=== PATIENT | female | born 1945 ===

== ENCOUNTER 2019-12-18 08:23 | Inpatient (IN) ==
[2019-12-18] MEDS ORDERED: Naloxone 0.4 MG/ML INJ IVP PRN (10:46)
[2019-12-18 10:49] LABS: Basophils % 0.2 %; Eosinophils % 0.1 %; Hematocrit 36.4 % (35.3-44.9); Hemoglobin 11.3 g/dL (11.5-15.4); Immature Granulocytes % 1.3 % (0-4); Lymphocytes # 1.2 K/mcL (0.6-4.6); Lymphocytes % 7.6 %; Mean Corpuscular Hemoglobin 27.6 pg (28.0-33.3); Mean Corpuscular Volume 88.8 fL (83.0-100.0); Mean Platelet Volume 9.5 fL (9.4-12.4); Monocytes # 0.6 K/mcL (0.0-1.3); Monocytes % 3.5 %; Neutrophils # 13.7 K/mcL (1.6-8.9); Nucleated Red Blood Cells 0.1 /100 WBC (0); Platelet Count 310 K/mcL (140-400); Red Cell Distribution Width 15.8 % (11.5-14.5); Segmented Neutrophils % 87.3 %; White Blood Count 15.7 K/mcL (4.3-11.1)
[2019-12-18 10:53] LABS: INR 1.7; Prothrombin Time 19.1 Seconds (9.4-12.1)
[2019-12-18 10:56] LABS: Activated Partial Thrombo Time 37.3 Seconds (26.0-36.0)
[2019-12-18 11:11] LABS: Alanine Aminotransferase 22 Units/L (7-52); Albumin 3.1 g/dL (3.5-5.7); Albumin/Globulin Ratio 0.7 (1.1-2.2); Alkaline Phosphatase 108 Units/L (34-104); Aspartate Amino Transferase 36 Units/L (13-39); BUN/Creatinine Ratio 29 (6-26); Bilirubin,Total 1.1 mg/dL (0.3-1.0); Blood Urea Nitrogen 17 mg/dL (8-23); Calcium 9.4 mg/dL (8.6-10.3); Carbon Dioxide 25 mEq/L (23-29); Chloride 99 mEq/L (98-107); Globulin 4.5 g/dL (2.4-3.5); Glucose 114 mg/dL (70-105); Osmolality,Calculated 288 (280-300); Potassium 3.3 mEq/L (3.5-5.1); Sodium 138 mEq/L (136-145); Total Protein 7.6 g/dL (6.4-8.9); eGFR For African Americans > 60 (> 60); eGFR For Non-African Americans > 60 (> 60)
[2019-12-18] MEDS ORDERED: Ondansetron 4 MG/2 ML VIAL IVP PRN (11:16)
[2019-12-18] MEDS ORDERED: Vancomycin 1,250 MG/262.5 ML IV.SOLN IVPB ONE (13:00)
[2019-12-18 13:35] LABS: C-Reactive Protein 289 mg/L (Less than 10)
[2019-12-18] MEDS: Piperacillin/Tazobactam 3.375 GM in 0.9 % Sodium Chloride Mini Bag 100 ML IVPB SCH (17:28)
[2019-12-18] MEDS: *HR* OxyCODONE Immed Rel 5 MG TABLET PO PRN (20:11)
[2019-12-18] MEDS: Pregabalin 75 MG CAPSULE PO SCH (20:11)
[2019-12-18] MEDS: *HR* LORazepam 0.5 MG TABLET PO SCH (21:56)
[2019-12-19] MEDS: Piperacillin/Tazobactam 3.375 GM in 0.9 % Sodium Chloride Mini Bag 100 ML IVPB SCH ×2 (00:55→07:58)
[2019-12-19 02:10] LABS: Basophils % 0.1 %; Eosinophils % 0.1 %; Hematocrit 34.4 % (35.3-44.9); Hemoglobin 10.8 g/dL (11.5-15.4); Immature Granulocytes % 1.5 % (0-4); Lymphocytes # 1.3 K/mcL (0.6-4.6); Lymphocytes % 10.6 %; Mean Corpuscular HGB Conc 31.4 g/dL (31.6-35.5); Mean Corpuscular Hemoglobin 27.6 pg (28.0-33.3); Mean Corpuscular Volume 87.8 fL (83.0-100.0); Mean Platelet Volume 9.9 fL (9.4-12.4); Monocytes # 0.6 K/mcL (0.0-1.3); Monocytes % 5.1 %; Neutrophils # 10.2 K/mcL (1.6-8.9); Nucleated Red Blood Cells 0.3 /100 WBC (0); Platelet Count 304 K/mcL (140-400); Red Blood Count 3.92 M/mcL (3.82-4.97); Red Cell Distribution Width 15.8 % (11.5-14.5); Segmented Neutrophils % 82.6 %; White Blood Count 12.3 K/mcL (4.3-11.1)
[2019-12-19] MEDS ORDERED: *HR* OxyCODONE Immed Rel 5 MG TABLET PO ONE (02:19)
[2019-12-19 02:28] LABS: BUN/Creatinine Ratio 31 (6-26); Blood Urea Nitrogen 15 mg/dL (8-23); Calcium 8.8 mg/dL (8.6-10.3); Carbon Dioxide 25 mEq/L (23-29); Chloride 102 mEq/L (98-107); Glucose 99 mg/dL (70-105); Osmolality,Calculated 291 (280-300); Potassium 3.4 mEq/L (3.5-5.1); Sodium 140 mEq/L (136-145); eGFR For African Americans > 60 (> 60); eGFR For Non-African Americans > 60 (> 60)
[2019-12-19] MEDS ORDERED: Vancomycin 1,250 MG/262.5 ML IV.SOLN IVPB SCH (03:00)
[2019-12-19 05:03] LABS: Magnesium 1.4 mg/dL (1.6-2.6)
[2019-12-19] MEDS ORDERED: Bacitracin 50,000 UNIT, Polymyxin B Sulfate 500,000 UNIT, Sodium Chloride IRRigation 1,... IR ONE (06:00)
[2019-12-19] MEDS: Pregabalin 75 MG CAPSULE PO SCH ×2 (07:57→21:09)
[2019-12-19] MEDS: Famotidine 20 MG TABLET PO SCH ×2 (08:01→21:09)
[2019-12-19] MEDS ORDERED: Furosemide 20 MG TABLET PO SCH (09:00)
[2019-12-19] MEDS ORDERED: amLODIPine 5 MG TABLET PO SCH (09:00)
[2019-12-19] MEDS ORDERED: *HR* LORazepam 0.5 MG TABLET PO SCH (09:00)
[2019-12-19] MEDS ORDERED: Lidocaine -MPF 2% 2 ML VIAL ONE (09:01)
[2019-12-19] MEDS ORDERED: *HR* FentaNYL (PF) 100 MCG/2 ML VIAL ONE ×2 (09:01→10:31)
[2019-12-19] MEDS ORDERED: Ondansetron 4 MG/2 ML VIAL ONE (09:01)
[2019-12-19] MEDS ORDERED: Dexamethasone 4 MG/ML VIAL ONE (09:01)
[2019-12-19] MEDS ORDERED: *HR* Propofol 200 MG/20 ML VIAL IVP ONE (09:02)
[2019-12-19] MEDS ORDERED: Vancomycin 1,000 MG VIAL ONE (09:30)
[2019-12-19] MEDS ORDERED: Acetaminophen IV 1,000 MG/100 ML BAG ONE (09:41)
[2019-12-19] MEDS: *HR* OxyCODONE Immed Rel 5 MG TABLET PO PRN ×2 (13:07→23:18)
[2019-12-19] MEDS: *HR* LORazepam 0.5 MG TABLET PO SCH (21:09)
[2019-12-20] MEDS ORDERED: Vancomycin 1,250 MG/262.5 ML IV.SOLN IVPB SCH (03:00)
[2019-12-20] MEDS: *HR* OxyCODONE Immed Rel 5 MG TABLET PO PRN ×3 (05:46→20:48)
[2019-12-20] MEDS ORDERED: Bacitracin 50,000 UNIT, Polymyxin B Sulfate 500,000 UNIT, Sodium Chloride IRRigation 1,... IR ONE (06:00)
[2019-12-20 06:39] LABS: Basophils % 0.2 %; Hematocrit 34.3 % (35.3-44.9); Hemoglobin 10.5 g/dL (11.5-15.4); Immature Granulocytes % 1.7 % (0-4); Lymphocytes # 0.9 K/mcL (0.6-4.6); Lymphocytes % 6.4 %; Mean Corpuscular HGB Conc 30.6 g/dL (31.6-35.5); Mean Corpuscular Hemoglobin 26.9 pg (28.0-33.3); Mean Corpuscular Volume 87.7 fL (83.0-100.0); Mean Platelet Volume 9.6 fL (9.4-12.4); Monocytes # 0.4 K/mcL (0.0-1.3); Neutrophils # 12.8 K/mcL (1.6-8.9); Nucleated Red Blood Cells 0.1 /100 WBC (0); Platelet Count 322 K/mcL (140-400); Red Blood Count 3.91 M/mcL (3.82-4.97); Red Cell Distribution Width 15.7 % (11.5-14.5); Segmented Neutrophils % 88.7 %; White Blood Count 14.5 K/mcL (4.3-11.1)
[2019-12-20 07:04] LABS: BUN/Creatinine Ratio 28 (6-26); Blood Urea Nitrogen 13 mg/dL (8-23); Calcium 8.9 mg/dL (8.6-10.3); Carbon Dioxide 27 mEq/L (23-29); Chloride 101 mEq/L (98-107); Glucose 155 mg/dL (70-105); Magnesium 1.5 mg/dL (1.6-2.6); Osmolality,Calculated 291 (280-300); Potassium 3.4 mEq/L (3.5-5.1); Sodium 139 mEq/L (136-145); eGFR For African Americans > 60 (> 60); eGFR For Non-African Americans > 60 (> 60)
[2019-12-20] MEDS ORDERED: *HR* Propofol 200 MG/20 ML VIAL IVP ONE (08:58)
[2019-12-20] MEDS ORDERED: *HR* FentaNYL (PF) 100 MCG/2 ML VIAL ONE ×2 (08:58→11:32)
[2019-12-20] MEDS ORDERED: Lidocaine -MPF 2% 2 ML VIAL ONE (08:59)
[2019-12-20] MEDS ORDERED: Dexamethasone 4 MG/ML VIAL ONE (08:59)
[2019-12-20] MEDS ORDERED: *HR* Rocuronium Bromide 50 MG/5 ML VIAL ONE (08:59)
[2019-12-20] MEDS ORDERED: Ondansetron 4 MG/2 ML VIAL ONE (08:59)
[2019-12-20] MEDS ORDERED: Lidocaine HCL 4 ML Topical Solution (Laryng-O-Jet Kit Sterile Pak) TP ONE (09:21)
[2019-12-20] MEDS ORDERED: Vancomycin 1,000 MG VIAL ONE (09:45)
[2019-12-20] MEDS ORDERED: Neostigmine Methylsulfate 3 MG/3 ML SYRINGE ONE (11:21)
[2019-12-20] MEDS ORDERED: *HR* HYDROmorphone PF 0.5 MG/0.5 ML SYRINGE IVP PRN (12:01)
[2019-12-20] MEDS ORDERED: Ondansetron 4 MG/2 ML VIAL IVP ONE (12:01)
[2019-12-20] MEDS: *HR* FentaNYL (PF) 100 MCG/2 ML VIAL IVP PRN ×4 (12:11→12:26)
[2019-12-20] MEDS ORDERED: Ringers Solution, Lactated 1,000 ML ONE (12:51)
[2019-12-20] MEDS ORDERED: Naloxone 0.4 MG/ML INJ IVP PRN (12:53)
[2019-12-20] MEDS ORDERED: Acetaminophen 325 MG TABLET PO PRN (12:53)
[2019-12-20] MEDS ORDERED: cephALEXin 500 MG CAPSULE PO SCH (12:53)
[2019-12-20] MEDS ORDERED: Ondansetron 4 MG/2 ML VIAL IVP PRN (12:53)
[2019-12-20] MEDS ORDERED: Sennosides 8.6 MG TABLET PO PRN (12:53)
[2019-12-20] MEDS ORDERED: *HR* HYDROcodone/Acet 5/325 mg TABLET PO PRN (12:53)
[2019-12-20] MEDS: Ringers Solution, Lactated 1,000 ML IVC SCH (13:00)
[2019-12-20] MEDS ORDERED: Vancomycin (wt based) 1,000 MG VIAL IVPB SCH (15:00)
[2019-12-20] MEDS ORDERED: Vancomycin 1,250 MG/262.5 ML IV.SOLN IVPB ONE (15:03)
[2019-12-20] MEDS: CeFAZolin 2 GM/120 ML BAG IVPB SCH (16:14)
[2019-12-21] MEDS: Ringers Solution, Lactated 1,000 ML IVC SCH ×2 (00:46→16:57)
[2019-12-21] MEDS: CeFAZolin 2 GM/120 ML BAG IVPB SCH (00:46)
[2019-12-21] MEDS: *HR* OxyCODONE Immed Rel 5 MG TABLET PO PRN ×2 (00:47→08:32)
[2019-12-21 02:47] LABS: Basophils % 0.1 %; Hematocrit 32.1 % (35.3-44.9); Hemoglobin 9.9 g/dL (11.5-15.4); Immature Granulocytes % 1.7 % (0-4); Lymphocytes # 0.8 K/mcL (0.6-4.6); Lymphocytes % 7.2 %; Mean Corpuscular HGB Conc 30.8 g/dL (31.6-35.5); Mean Corpuscular Hemoglobin 27.9 pg (28.0-33.3); Mean Corpuscular Volume 90.4 fL (83.0-100.0); Mean Platelet Volume 9.6 fL (9.4-12.4); Monocytes # 0.6 K/mcL (0.0-1.3); Monocytes % 5.1 %; Neutrophils # 9.9 K/mcL (1.6-8.9); Platelet Count 336 K/mcL (140-400); Red Blood Count 3.55 M/mcL (3.82-4.97); Red Cell Distribution Width 15.5 % (11.5-14.5); Segmented Neutrophils % 85.9 %; White Blood Count 11.6 K/mcL (4.3-11.1)
[2019-12-21] MEDS ORDERED: Vancomycin 1,250 MG/262.5 ML IV.SOLN IVPB SCH (03:00)
[2019-12-21 03:03] LABS: BUN/Creatinine Ratio 26 (6-26); Blood Urea Nitrogen 12 mg/dL (8-23); Calcium 8.8 mg/dL (8.6-10.3); Carbon Dioxide 28 mEq/L (23-29); Chloride 101 mEq/L (98-107); Glucose 129 mg/dL (70-105); Magnesium 1.2 mg/dL (1.6-2.6); Osmolality,Calculated 287 (280-300); Potassium 3.3 mEq/L (3.5-5.1); Sodium 138 mEq/L (136-145); eGFR For African Americans > 60 (> 60); eGFR For Non-African Americans > 60 (> 60)
[2019-12-21] MEDS ORDERED: Potassium Chloride 40 MEQ, Lidocaine 1% 2 ML in 0.9 % Sodium Chloride 500 ML IVPB ONE (08:06)
[2019-12-21] MEDS ORDERED: *HR* Rivaroxaban 10 MG TABLET PO SCH (09:00)
[2019-12-21] MEDS ORDERED: diazePAM 2 MG TABLET PO PRN (09:37)
[2019-12-21] MEDS ORDERED: Lidocaine -MPF 1% 5 ML AMPUL INFILT ONE (11:12)
[2019-12-21] MEDS: *HR* HYDROmorphone (PF) 1 MG/ML SYRINGE IVP PRN ×3 (14:09→22:15)
[2019-12-21] MEDS ORDERED: *HR* LORazepam 1 MG TABLET PO PRN (15:00)
[2019-12-21] MEDS: Vancomycin 1,250 MG/262.5 ML IV.SOLN IVPB SCH (15:05)
[2019-12-21] MEDS: amLODIPine 5 MG TABLET PO SCH (16:56)
[2019-12-21] MEDS: *HR* Rivaroxaban 10 MG TABLET PO SCH (16:56)
[2019-12-22] MEDS: Vancomycin 1,250 MG/262.5 ML IV.SOLN IVPB SCH ×2 (02:21→18:49)
[2019-12-22] MEDS: *HR* HYDROmorphone (PF) 1 MG/ML SYRINGE IVP PRN ×2 (02:21→08:45)
[2019-12-22] MEDS: Ringers Solution, Lactated 1,000 ML IVC SCH ×2 (02:27→18:47)
[2019-12-22 05:35] LABS: Basophils % 0.1 %; Hematocrit 32.6 % (35.3-44.9); Immature Granulocytes % 2.3 % (0-4); Lymphocytes # 1.4 K/mcL (0.6-4.6); Lymphocytes % 8.8 %; Mean Corpuscular HGB Conc 30.7 g/dL (31.6-35.5); Mean Corpuscular Hemoglobin 27.3 pg (28.0-33.3); Mean Corpuscular Volume 89.1 fL (83.0-100.0); Mean Platelet Volume 9.4 fL (9.4-12.4); Monocytes # 0.9 K/mcL (0.0-1.3); Monocytes % 5.8 %; Platelet Count 320 K/mcL (140-400); Red Blood Count 3.66 M/mcL (3.82-4.97); Red Cell Distribution Width 15.4 % (11.5-14.5); White Blood Count 15.6 K/mcL (4.3-11.1)
[2019-12-22 05:52] LABS: BUN/Creatinine Ratio 18 (6-26); Blood Urea Nitrogen 9 mg/dL (8-23); Calcium 8.4 mg/dL (8.6-10.3); Carbon Dioxide 29 mEq/L (23-29); Chloride 98 mEq/L (98-107); Glucose 105 mg/dL (70-105); Magnesium 1.4 mg/dL (1.6-2.6); Osmolality,Calculated 281 (280-300); Potassium 3.1 mEq/L (3.5-5.1); Sodium 136 mEq/L (136-145); eGFR For African Americans > 60 (> 60); eGFR For Non-African Americans > 60 (> 60)
[2019-12-22] MEDS ORDERED: *HR* OxyCODONE Immed Rel 5 MG TABLET PO PRN (08:00)
[2019-12-22] MEDS: amLODIPine 5 MG TABLET PO SCH (08:40)
[2019-12-22] MEDS ORDERED: *HR* LORazepam 0.5 MG TABLET PO SCH (09:00)
[2019-12-22] MEDS: Pregabalin 75 MG CAPSULE PO SCH ×2 (18:42→22:11)
[2019-12-22] MEDS: *HR* Rivaroxaban 10 MG TABLET PO SCH (18:59)
[2019-12-22 20:27] VITALS: BP 160/53
[2019-12-22] MEDS ORDERED: Aminoglycoside Consult 1 EACH MC ONE (22:39)
== END 2019-12-22 22:40 | DRG 856 ==
LOC: 3NENU → SUATTDRO 11:43
PROVIDERS: ADMIT Orthopaedic Surgery Orthopaedic Surgery of the Spine; ATTEND Pharmacist

== ENCOUNTER 2020-01-11 16:35 | Inpatient (IN) ==
[2020-01-11] MEDS ORDERED: Naloxone 0.4 MG/ML INJ IVP PRN (22:27)
[2020-01-11] MEDS ORDERED: 0.9 % Sodium Chloride 1,000 ML IVC SCH (22:30)
[2020-01-11] MEDS ORDERED: *HR* Atropine Sulfate 1 MG/10 ML SYRINGE IVP PRN (23:54)
[2020-01-12 01:39] LABS: Basophils % 0.8 %; Eosinophils # 0.1 K/mcL (0.0-0.6); Eosinophils % 2.1 %; Hematocrit 25.7 % (35.3-44.9); Hemoglobin 7.7 g/dL (11.5-15.4); Immature Granulocytes % 0.4 % (0-4); Lymphocytes # 0.9 K/mcL (0.6-4.6); Lymphocytes % 17.6 %; Mean Corpuscular Hemoglobin 26.8 pg (28.0-33.3); Mean Corpuscular Volume 89.5 fL (83.0-100.0); Mean Platelet Volume 10.2 fL (9.4-12.4); Monocytes # 0.4 K/mcL (0.0-1.3); Monocytes % 7.3 %; Neutrophils # 3.8 K/mcL (1.6-8.9); Platelet Count 169 K/mcL (140-400); Red Blood Count 2.87 M/mcL (3.82-4.97); Red Cell Distribution Width 17.1 % (11.5-14.5); Segmented Neutrophils % 71.8 %; White Blood Count 5.2 K/mcL (4.3-11.1)
[2020-01-12] MEDS ORDERED: VANCOMYCIN IV SCH (01:45)
[2020-01-12] MEDS ORDERED: [UNRECOGNIZED DRUG - OTHER] IV SCH (01:45)
[2020-01-12 01:59] LABS: Alanine Aminotransferase 7 Units/L (7-52); Albumin 2.6 g/dL (3.5-5.7); Albumin/Globulin Ratio 0.8 (1.1-2.2); Alkaline Phosphatase 76 Units/L (34-104); Aspartate Amino Transferase 13 Units/L (13-39); BUN/Creatinine Ratio 13 (6-26); Bilirubin,Total 0.7 mg/dL (0.3-1.0); Blood Urea Nitrogen 12 mg/dL (8-23); Calcium 8.2 mg/dL (8.6-10.3); Carbon Dioxide 25 mEq/L (23-29); Chloride 105 mEq/L (98-107); Globulin 3.4 g/dL (2.4-3.5); Glucose 106 mg/dL (70-105); Magnesium 1.7 mg/dL (1.6-2.6); Osmolality,Calculated 286 (280-300); Potassium 3.7 mEq/L (3.5-5.1); Sodium 138 mEq/L (136-145); eGFR For African Americans > 60 (> 60); eGFR For Non-African Americans > 60 (> 60)
[2020-01-12 02:07] LABS: INR 2.1; Prothrombin Time 23.6 Seconds (9.4-12.1)
[2020-01-12 02:30] LABS: Activated Partial Thrombo Time 42.1 Seconds (26.0-36.0)
[2020-01-12] MEDS ORDERED: *HR* Atropine Sulfate 1 MG/10 ML SYRINGE IVP ONE (02:42)
[2020-01-12 03:42] LABS: Bilirubin,Urine Negative (Negative); Blood,Urine Moderate (Negative); Clarity,Urine Clear (Clear); Color,Urine Light-Yellow (Yellow); Glucose,Urine (UA) Normal (Normal); Ketones,Urine Negative (Negative); Leukocyte Esterase,Urine Moderate (Negative); Mucus,Urine Few per lpf (None-Few); Nitrite,Urine Negative (Negative); Protein,Urine Trace mg/dL (Neg-Trace); RBC,Urine 30-50 per hpf (0-3); Specific Gravity,Urine 1.019 (1.010-1.025); Squamous Epithelial Cell,Urine Few per hpf (None-Few); Urobilinogen,Urine Normal (Normal); WBC,Urine 30-50 per hpf (0-3)
[2020-01-12] MEDS ORDERED: Aspirin 325 MG TABLET PO ONE (05:20)
[2020-01-12] MEDS ORDERED: Magnesium Sulfate 1 GM/102 ML PIGGYBACK IVPB ONE (05:30)
[2020-01-12 05:40] LABS: Thyroid Stimulating Hormone 0.344 mcIU/mL (0.340-5.600)
[2020-01-12] MEDS ORDERED: 0.9 % Sodium Chloride 500 ML ONE (06:24)
[2020-01-12] MEDS: *HR* Rivaroxaban 10 MG TABLET PO SCH (08:09)
[2020-01-12] MEDS: Ondansetron ODT 4 MG TAB.RAPDIS SL PRN ×3 (10:01→22:17)
[2020-01-12 10:27] LABS: Hematocrit 30.9 % (35.3-44.9)
[2020-01-12 10:28] LABS: Hemoglobin 9.3 g/dL (11.5-15.4)
[2020-01-12] MEDS ORDERED: Furosemide 40 MG/4 ML VIAL IVP ONE (12:31)
[2020-01-12] MEDS ORDERED: Aminoglycoside Consult 1 EACH MC ONE (14:10)
[2020-01-13] MEDS ORDERED: Acetaminophen IV 1,000 MG/100 ML INFUS..BTL IVPB ONE (01:38)
[2020-01-13] MEDS: Furosemide 40 MG/4 ML VIAL IVP SCH (07:36)
[2020-01-13] MEDS: *HR* Rivaroxaban 10 MG TABLET PO SCH (07:36)
[2020-01-13 08:30] LABS: BUN/Creatinine Ratio 12 (6-26); Blood Urea Nitrogen 10 mg/dL (8-23); Calcium 8.6 mg/dL (8.6-10.3); Carbon Dioxide 31 mEq/L (23-29); Chloride 97 mEq/L (98-107); Glucose 105 mg/dL (70-105); Osmolality,Calculated 281 (280-300); Sodium 136 mEq/L (136-145); eGFR For African Americans > 60 (> 60); eGFR For Non-African Americans > 60 (> 60)
[2020-01-13 08:31] LABS: Basophils % 0.4 %; Eosinophils # 0.1 K/mcL (0.0-0.6); Eosinophils % 1.5 %; Hematocrit 34.1 % (35.3-44.9); Hemoglobin 10.5 g/dL (11.5-15.4); Immature Granulocytes % 0.3 % (0-4); Lymphocytes # 0.8 K/mcL (0.6-4.6); Lymphocytes % 11.8 %; Mean Corpuscular HGB Conc 30.8 g/dL (31.6-35.5); Mean Corpuscular Hemoglobin 27.5 pg (28.0-33.3); Mean Corpuscular Volume 89.3 fL (83.0-100.0); Mean Platelet Volume 10.4 fL (9.4-12.4); Monocytes # 0.5 K/mcL (0.0-1.3); Monocytes % 7.3 %; Neutrophils # 5.3 K/mcL (1.6-8.9); Platelet Count 206 K/mcL (140-400); Red Blood Count 3.82 M/mcL (3.82-4.97); Red Cell Distribution Width 16.9 % (11.5-14.5); Segmented Neutrophils % 78.7 %; White Blood Count 6.7 K/mcL (4.3-11.1)
[2020-01-13] MEDS ORDERED: amLODIPine 5 MG TABLET PO SCH (09:00)
[2020-01-13] MEDS: Ondansetron ODT 4 MG TAB.RAPDIS SL PRN ×2 (15:14→21:28)
[2020-01-14] MEDS: Furosemide 40 MG/4 ML VIAL IVP SCH (08:36)
[2020-01-14] MEDS: *HR* Rivaroxaban 10 MG TABLET PO SCH (08:37)
[2020-01-14] MEDS: amLODIPine 5 MG TABLET PO SCH (08:37)
[2020-01-14] MEDS: Ondansetron ODT 4 MG TAB.RAPDIS SL PRN ×3 (09:23→22:19)
[2020-01-14 10:34] LABS: Basophils % 0.4 %; Eosinophils # 0.1 K/mcL (0.0-0.6); Eosinophils % 0.8 %; Hematocrit 37.1 % (35.3-44.9); Hemoglobin 11.6 g/dL (11.5-15.4); Immature Granulocytes % 0.3 % (0-4); Lymphocytes # 0.7 K/mcL (0.6-4.6); Lymphocytes % 8.6 %; Mean Corpuscular HGB Conc 31.3 g/dL (31.6-35.5); Mean Corpuscular Hemoglobin 26.9 pg (28.0-33.3); Mean Corpuscular Volume 86.1 fL (83.0-100.0); Mean Platelet Volume 9.6 fL (9.4-12.4); Monocytes # 0.6 K/mcL (0.0-1.3); Monocytes % 7.8 %; Neutrophils # 6.3 K/mcL (1.6-8.9); Platelet Count 222 K/mcL (140-400); Red Blood Count 4.31 M/mcL (3.82-4.97); Red Cell Distribution Width 16.4 % (11.5-14.5); Segmented Neutrophils % 82.1 %; White Blood Count 7.7 K/mcL (4.3-11.1)
[2020-01-14 10:50] LABS: BUN/Creatinine Ratio 10 (6-26); Blood Urea Nitrogen 8 mg/dL (8-23); Calcium 9.3 mg/dL (8.6-10.3); Carbon Dioxide 38 mEq/L (23-29); Chloride 89 mEq/L (98-107); Glucose 132 mg/dL (70-105); Osmolality,Calculated 282 (280-300); Potassium 2.7 mEq/L (3.5-5.1); Sodium 136 mEq/L (136-145); eGFR For African Americans > 60 (> 60); eGFR For Non-African Americans > 60 (> 60)
[2020-01-14] MEDS ORDERED: *HR* Alteplase (Cathflo) 2 MG VIAL IVP ONE (15:16)
[2020-01-15 02:39] LABS: Basophils % 0.4 %; Eosinophils # 0.1 K/mcL (0.0-0.6); Eosinophils % 0.8 %; Hematocrit 35.8 % (35.3-44.9); Hemoglobin 11.2 g/dL (11.5-15.4); Immature Granulocytes % 0.4 % (0-4); Lymphocytes # 0.7 K/mcL (0.6-4.6); Lymphocytes % 9.2 %; Mean Corpuscular HGB Conc 31.3 g/dL (31.6-35.5); Mean Corpuscular Hemoglobin 27.2 pg (28.0-33.3); Mean Corpuscular Volume 86.9 fL (83.0-100.0); Mean Platelet Volume 9.5 fL (9.4-12.4); Monocytes # 0.6 K/mcL (0.0-1.3); Monocytes % 8.1 %; Neutrophils # 5.8 K/mcL (1.6-8.9); Platelet Count 228 K/mcL (140-400); Red Blood Count 4.12 M/mcL (3.82-4.97); Red Cell Distribution Width 16.3 % (11.5-14.5); Segmented Neutrophils % 81.1 %; White Blood Count 7.2 K/mcL (4.3-11.1)
[2020-01-15 02:57] LABS: BUN/Creatinine Ratio 11 (6-26); Blood Urea Nitrogen 9 mg/dL (8-23); Calcium 8.9 mg/dL (8.6-10.3); Carbon Dioxide 38 mEq/L (23-29); Chloride 89 mEq/L (98-107); Glucose 111 mg/dL (70-105); Osmolality,Calculated 283 (280-300); Potassium 2.8 mEq/L (3.5-5.1); Sodium 137 mEq/L (136-145); eGFR For African Americans > 60 (> 60); eGFR For Non-African Americans > 60 (> 60)
[2020-01-15] MEDS: Ondansetron ODT 4 MG TAB.RAPDIS SL PRN ×2 (04:19→10:15)
[2020-01-15] MEDS: *HR* Rivaroxaban 10 MG TABLET PO SCH (08:12)
[2020-01-15] MEDS: amLODIPine 5 MG TABLET PO SCH (08:13)
[2020-01-15] MEDS: Furosemide 40 MG/4 ML VIAL IVP SCH (08:15)
[2020-01-15] MEDS ORDERED: Ondansetron ODT 4 MG TAB.RAPDIS SL STA (12:02)
[2020-01-15] MEDS ORDERED: 0.9 % Sodium Chloride 500 ML IVC SCH (13:45)
[2020-01-15 15:22] VITALS: BP 149/71
== END 2020-01-15 17:36 | DRG 308 ==
LOC: 2ANU → SUATTDRO 01-12 13:40
PROVIDERS: ADMIT Internal Medicine; ATTEND Internal Medicine

== ENCOUNTER 2020-09-04 14:05 | Inpatient (IN) ==
[2020-09-04] MEDS ORDERED: Ondansetron 4 MG/2 ML VIAL IVP PRN (16:27)
[2020-09-04] MEDS ORDERED: Ringers Solution, Lactated 1,000 ML IVC SCH (17:45)
[2020-09-04] MEDS: *HR* OxyCODONE Immed Rel 5 MG TABLET PO PRN (20:08)
[2020-09-04] MEDS: Gabapentin 100 MG CAPSULE PO SCH (20:09)
[2020-09-04] MEDS ORDERED: Gadolinium Contrast Agent (WT Based) IV PRN (20:54)
[2020-09-05] MEDS: *HR* OxyCODONE Immed Rel 5 MG TABLET PO PRN ×5 (00:31→23:35)
[2020-09-05 02:38] LABS: Basophils % 0.1 %; Hematocrit 32.2 % (35.3-44.9); Immature Granulocytes % 0.5 % (0-4); Lymphocytes # 0.8 K/mcL (0.6-4.6); Lymphocytes % 8.5 %; Mean Corpuscular HGB Conc 31.4 g/dL (31.6-35.5); Mean Corpuscular Hemoglobin 28.8 pg (28.0-33.3); Mean Corpuscular Volume 91.7 fL (83.0-100.0); Mean Platelet Volume 10.3 fL (9.4-12.4); Monocytes # 0.7 K/mcL (0.0-1.3); Monocytes % 7.2 %; Neutrophils # 7.9 K/mcL (1.6-8.9); Platelet Count 230 K/mcL (140-400); Red Blood Count 3.51 M/mcL (3.82-4.97); Red Cell Distribution Width 14.2 % (11.5-14.5); Segmented Neutrophils % 83.7 %; White Blood Count 9.5 K/mcL (4.3-11.1)
[2020-09-05 02:40] LABS: Hemoglobin 10.1 g/dL (11.5-15.4)
[2020-09-05 02:46] LABS: INR 1.7; Prothrombin Time 19.1 Seconds (9.4-12.1)
[2020-09-05 03:00] LABS: BUN/Creatinine Ratio 30 (6-26); Blood Urea Nitrogen 26 mg/dL (8-23); Calcium 9.5 mg/dL (8.6-10.3); Carbon Dioxide 26 mEq/L (23-29); Chloride 101 mEq/L (98-107); Glucose 110 mg/dL (70-105); Magnesium 1.8 mg/dL (1.6-2.6); Osmolality,Calculated 283 (280-300); Potassium 4.2 mEq/L (3.5-5.1); Sodium 134 mEq/L (136-145); eGFR For African Americans > 60 (> 60); eGFR For Non-African Americans > 60 (> 60)
[2020-09-05] MEDS ORDERED: Gadolinium Contrast Agent (WT Based) IV PRN (09:48)
[2020-09-05] MEDS: amLODIPine 5 MG TABLET PO SCH (09:59)
[2020-09-05] MEDS: Gabapentin 100 MG CAPSULE PO SCH ×3 (09:59→20:23)
[2020-09-05] MEDS: *HR* Rivaroxaban 15 MG TABLET PO SCH (09:59)
[2020-09-05] MEDS ORDERED: Cefepime HCl 2,000 MG in 0.9 % Sodium Chloride Mini Bag 100 ML IVPB SCH (16:00)
[2020-09-05] MEDS ORDERED: Piperacillin/Tazobactam 3.375 GM in 0.9 % Sodium Chloride Mini Bag 100 ML IVPB SCH (16:00)
[2020-09-05] MEDS: Cefepime HCl 2,000 MG in 0.9 % Sodium Chloride Mini Bag 100 ML IVPB SCH ×2 (17:21→23:32)
[2020-09-05] MEDS: Melatonin 3 MG TABLET PO PRN (20:23)
[2020-09-06 01:40] LABS: Acinetobacter baumannii by PCR Not Detected (Not Detect); Candida albicans by PCR Not Detected (Not Detect); Candida glabrata by PCR Not Detected (Not Detect); Candida krusei by PCR Not Detected (Not Detect); Candida parapsilosis by PCR Not Detected (Not Detect); Candida tropicalis by PCR Not Detected (Not Detect); Enterobacter cloacae Cmplx PCR Not Detected (Not Detect); Enterobacteriaceae by PCR Not Detected (Not Detect); Enterococcus by PCR Not Detected (Not Detect); Escherichia coli by PCR Not Detected (Not Detect); Klebsiella oxytoca by PCR Not Detected (Not Detect); Klebsiella pneumoniae by PCR Not Detected (Not Detect); Proteus by PCR Not Detected (Not Detect); Pseudomonas aeruginosa by PCR Not Detected (Not Detect); Serratia marcescens by PCR Not Detected (Not Detect); Staphylococcus aureus by PCR DETECTED (Not Detect); Staphylococcus by PCR Not Detected (Not Detect); Streptococcus agalactiae(B)PCR Not Detected (Not Detect); Streptococcus by PCR Not Detected (Not Detect); Streptococcus pneumoniae PCR Not Detected (Not Detect); Streptococcus pyogenes (A) PCR Not Detected (Not Detect); mecA Methicillin-Resist Gene Not Detected (Not Detect); vanA/B Vancomycin-Resist Genes Not Detected (Not Detect)
[2020-09-06] MEDS: *HR* OxyCODONE Immed Rel 5 MG TABLET PO PRN ×4 (03:58→20:26)
[2020-09-06] MEDS ORDERED: Perflutren Lipid Microsphere 1.3 ML in 0.9 % Sodium Chloride 8.7 ML IVP PRN (07:51)
[2020-09-06] MEDS: Gabapentin 100 MG CAPSULE PO SCH ×3 (07:53→20:26)
[2020-09-06] MEDS: *HR* Rivaroxaban 15 MG TABLET PO SCH (07:53)
[2020-09-06] MEDS: amLODIPine 5 MG TABLET PO SCH (07:53)
[2020-09-06] MEDS: Cefepime HCl 2,000 MG in 0.9 % Sodium Chloride Mini Bag 100 ML IVPB SCH ×2 (07:54→20:26)
[2020-09-06] MEDS: Melatonin 3 MG TABLET PO PRN (22:50)
[2020-09-07] MEDS: *HR* OxyCODONE Immed Rel 5 MG TABLET PO PRN ×4 (00:28→13:48)
[2020-09-07] MEDS ORDERED: Nitroglycerin 0.4 MG TAB.SUBL SL PRN (04:28)
[2020-09-07] MEDS: Cefepime HCl 2,000 MG in 0.9 % Sodium Chloride Mini Bag 100 ML IVPB SCH (05:26)
[2020-09-07] MEDS: Gabapentin 100 MG CAPSULE PO SCH ×2 (08:40→13:48)
[2020-09-07] MEDS: Acetaminophen 325 MG TABLET PO PRN ×2 (08:41→16:03)
[2020-09-07] MEDS: *HR* Rivaroxaban 15 MG TABLET PO SCH (08:41)
[2020-09-07 10:24] LABS: Basophils % 0.3 %; Eosinophils % 0.1 %; Hematocrit 31.5 % (35.3-44.9); Hemoglobin 9.9 g/dL (11.5-15.4); Immature Granulocytes % 0.5 % (0-4); Lymphocytes # 0.6 K/mcL (0.6-4.6); Lymphocytes % 8.7 %; Mean Corpuscular HGB Conc 31.4 g/dL (31.6-35.5); Mean Corpuscular Hemoglobin 28.1 pg (28.0-33.3); Mean Corpuscular Volume 89.5 fL (83.0-100.0); Mean Platelet Volume 9.8 fL (9.4-12.4); Monocytes # 0.4 K/mcL (0.0-1.3); Monocytes % 5.7 %; Neutrophils # 6.2 K/mcL (1.6-8.9); Platelet Count 227 K/mcL (140-400); Red Blood Count 3.52 M/mcL (3.82-4.97); Red Cell Distribution Width 13.8 % (11.5-14.5); Segmented Neutrophils % 84.7 %; White Blood Count 7.3 K/mcL (4.3-11.1)
[2020-09-07 10:44] LABS: Blood Urea Nitrogen 16 mg/dL (8-23); Carbon Dioxide 25 mEq/L (23-29); Chloride 101 mEq/L (98-107); Potassium 3.3 mEq/L (3.5-5.1); Sodium 135 mEq/L (136-145)
[2020-09-07 10:45] LABS: BUN/Creatinine Ratio 22 (6-26); Calcium 9.3 mg/dL (8.6-10.3); Glucose 155 mg/dL (70-105); Magnesium 1.4 mg/dL (1.6-2.6); Osmolality,Calculated 284 (280-300); eGFR For African Americans > 60 (> 60); eGFR For Non-African Americans > 60 (> 60)
[2020-09-07 14:30] VITALS: BP 130/56
== END 2020-09-07 16:25 | disposition short-term general hospital (02) | DRG 477 ==
LOC: 3NENU → SUATTDRO 15:50
PROVIDERS: ADMIT Internal Medicine; ATTEND Internal Medicine